=== PATIENT | male | born 2000 | race Caucasian/White ===

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

== ENCOUNTER 2023-05-12 17:47 | Emergency (ER) | payer MEDICAID ==
[~2023-05-12] VITALS: Ht 180.3 cm; Wt 84.4 kg
[2023-05-12 17:47] VITALS: BP_SYST 134; PULSE 89; RESP 18; TEMP 98.5; O2SAT 97
[2023-05-12 20:07] VITALS: BP_SYST 134; PULSE 89; RESP 18; TEMP 98.5; O2SAT 97
== END 2023-05-12 20:07 | disposition home or self-care (01) ==
LOC: SED 17:47
DX: S61.211A Laceration without foreign body of left index finger without damage to nail, initial encounter (principal); S60.022A Contusion of left index finger without damage to nail, initial encounter; J45.909 Unspecified asthma, uncomplicated; Z79.899 Other long term (current) drug therapy; W23.0XXA Caught, crushed, jammed, or pinched between moving objects, initial encounter; Y93.89 Activity, other specified; Y92.89 Other specified places as the place of occurrence of the external cause; Y99.8 Other external cause status
CPT/HCPCS: 73140; 99283